=== PATIENT | male | born 1955 | race Caucasian/White ===

== ENCOUNTER 2020-03-09 09:55 | Outpatient (CLI) | payer BC, SELFPAY ==
--- NOTE | ~2020-03-09 | XR_ITS ---
XR lumbar spine 2-3V DATE: 03/09/2020 10:42 INDICATION: Back pain. Status post lumbar fusion. TECHNIQUE: Standing AP and lateral views COMPARISON: 03/25/2019 standing AP and lateral views FINDINGS: There are 6 functional lumbar vertebrae. There is mild lumbar scoliosis. Normal alignment at the lumbar spine. Again noted is posterior and interbody spinal fusion at the lumbosacral and 2 cephalad levels. No hardware failure or displacement is identified. Moderately severe degenerative disc disease is again noted at an upper lumbar interspaces level. Bila teral bipolar hip replacements. IMPRESSION: No significant change since 03/25/2019 Reviewed, dictated and finalized at location A.
== END 2020-03-09 09:56 | disposition home or self-care (01) ==
LOC: ANHIMG 10:05
DX: Z98.1 Arthrodesis status (principal)
CPT/HCPCS: 72100

== ENCOUNTER → 2020-06-21 09:29 | Outpatient (CLI) | payer BC, SELFPAY ==
--- NOTE | ~2020-06-21 | MR_ITS ---
EXAMINATION: MR lumbar spine wo/w con DATE: 06/21/2020 10:51 INDICATION: Lumbar radiculopathy TECHNIQUE: Magnetic resonance imaging (MRI) of the lumbar spine was performed without and with 20 mL Multihance intravenous contrast. Sequences included sagittal T2-weighted FSE, sagittal T2-weighted FS FSE, and sagittal and axial T1-weighted FSE. Postcontrast sequences included axial T2-weighted FSE, sagittal T1-weighted FSE, and axial and sagittal T1-weighted FS FSE. COMPARISON: 12/16/2018 FINDINGS: Straightening of the normal lumbar lordosis. Interval extension of the prior anterior and posterior s keke fusion previously seen at L5-S1 and now extending from L3 through S1. Metallic magnetic field f ield artifact is associated with interbody fusion devices as well as bilateral vertical rakel and pedic le screw fixation at each level. Minimal likely physiologic anterior wedging at T12. Severe disc heig ht loss with degenerative endplate changes at L1-L2. Disc desiccation without significant disc height loss at L2-L3. Interval increase in size of a previously 1.1 x 1.4 x 0.8 cm enhancing lesion in the right side of the L2 vertebral body which is isointense to skeletal muscle on T1-weighted images and which is increased in size to 1.6 x 1.6 x 1.1 cm. Given the lack of additional suspicious bone lesion s in the minimal slip box changer 18 months this would be most consistent with an atypical hemangioma. Mil d enhancement/with a small Schmorl's node along the superior endplate of L2. The conus medullaris ter minates at L1-L2. There is normal signal in the caudal spinal cord. Abdominal lipomatosis above the l evel of the postoperative changes where it has decreased with associated hemilaminotomies which be fu rther discussed below. Postoperative scarring in the soft tissues superficial to the mid to lower lum bar spine. Paravertebral soft tissues are otherwise unremarkable. The following disc levels are speci fically discussed: T12-L1: Disc is minimally bulging. There is mild right facet joint osteoarthritis. There is no neural foraminal stenosis. There is no central canal stenosis. L1-L2: Disc is bulging and has an annular fissure There is moderate right and mild left facet joint o steoarthritis. There is mild bilateral neural foraminal stenosis. There is moderate central canal nuria nosis. L2-L3: Increasing disc bulge with annular fissure. There is moderate right and mild to moderate left facet joint osteoarthritis. There is moderate left and mild to moderate right neural foraminal stenos is. There is severe central canal stenosis. L3-L4: Changes of anterior and posterior fusion. Bilateral hemilaminotomies with posterior decompress ion. There is no central canal stenosis. L4-L5: Changes of anterior and posterior fusion. Bilateral hemilaminotomies with posterior decompress ion. There is mild bilateral neural foraminal stenosis. There is no central canal stenosis. L5-S1: Stable appearance of change of anterior and posterior spinal fusion. There is no facet joint o steoarthritis. There is no neural foraminal stenosis. There is no central canal stenosis. IMPRESSION: 1. Severe lumbar spondylosis with interval extension of a prior combined instrumented anterior and po sterior spinal fusion at L5-S1, now extending cephalad to L3. Reviewed, dictated and finalized at location A. IMPRESSION: 1. Severe lumbar spondylosis with interval extension of a prior combined instru mented anterior and posterior spinal fusion at L5-S1, now extending cephalad to L3.
[2020-06-21 09:59] LABS: Estimated Glomerular Filt Rate 56
== END ==
PROVIDERS: Visit Provider Anesthesiology
DX: M47.26 Other spondylosis with radiculopathy, lumbar region (principal)
CPT/HCPCS: 36415; 72158; A9577

== ENCOUNTER → 2021-02-21 12:52 | Outpatient (CLI) | payer BC, SELFPAY ==
--- NOTE | ~2021-02-21 | MR_ITS ---
EXAMINATION: MR lumbar spine wo con DATE: 02/21/2021 14:01 INDICATION: Low back pain. Lumbar radiculopathy. TECHNIQUE: Magnetic resonance imaging (MRI) of the lumbar spine was performed without intravenous con trast. Sequences included sagittal T2-weighted FSE, sagittal STIR FSE, sagittal T1-weighted FSE, and axial T2-weighted FSE. COMPARISON: Lumbar spine MRI 06/21/2020 FINDINGS: Bone alignment is normal. There is mild chronic anterior wedging of T11-L1 vertebral bodies . There is moderately decreased disc height at L1-L2 and mildly decreased disc height at L2-L3. There are changes of anterior and posterior fusion procedures from L3 to S1 with discectomies, interbody d evices, and pedicle screws. There is epidural lipomatosis in upper lumbar spine. The distal spinal co rd signal intensity is normal. The conus medullaris is at L1-L2. The following disc levels are specif ically discussed: L1-L2: The disc is bulging and has an annular fissure. There is moderate bilateral facet joint osteoa rthritis. There is mild lateral neural foraminal stenosis. There is mild central canal stenosis. L2-L3: The disc is bulging and has an annular fissure. There is severe bilateral facet joint osteoart hritis. There is moderate bilateral neural foraminal stenosis. There is moderate central canal stenos is. L3-L4: There is moderate right and mild left facet joint hypertrophy. There is moderate right and mil d left neural foraminal stenosis. There is no central canal stenosis. L4-L5: There is moderate left facet joint hypertrophy. There is mild bilateral neural foraminal steno sis. There is no central canal stenosis. L5-S1: There is mild right facet joint hypertrophy. There is mild right neural foraminal stenosis. Th ere is no central canal stenosis. IMPRESSION: 1. Moderate lumbar spondylosis, stable from 06/21/2020. 2. Anterior and posterior fusion procedures from L3 to S1. Reviewed, dictated and finalized at location A.
[2021-02-21 13:30] LABS: Estimated Glomerular Filt Rate 36
== END ==
PROVIDERS: Visit Provider Anesthesiology
DX: M47.26 Other spondylosis with radiculopathy, lumbar region (principal); Z98.1 Arthrodesis status
CPT/HCPCS: 72148

== ENCOUNTER 2021-05-17 00:51 | Day surgery (SDC) | payer MEDICARE, BC, SELFPAY ==
[2021-05-11 09:28] VITALS: BMI 34.5
--- NOTE | 2021-05-17 07:11 | WPDHPUPDATE1 ---
History and Physical Update Update Date/Time: 05/17/21 07:11 History and Physical has been reviewed, including an updated exam of the patient. There are NO changes in the patient's condition. Risks, benefits, and alternatives have been discussed and questions answered. Patient agrees to proceed with procedure.
[2021-05-17 09:49] VITALS: BP 173/79; PULSE 59; RESP 16; TEMP 36.2; O2SAT 100
[2021-05-17] MEDS: LACTATED RINGERS 1,000 ML 30 ML IV CONT (10:07)
--- NOTE | 2021-05-17 10:31 | WPDANESEPPF ---
Anes - Initial Pre Proc Eval Procedure: Operation Date: 05/17/21 11:45 Proposed Procedures p Excision Subcutaneous Mass Right Sternocleidomastoid - Ferny Cruz MD Date/Time: 05/17/21 10:31 Surgeon: Ferny Cruz MD Pre Op Diagnosis: right mass subcutaneous sternocleidomastoid Patient Data Age: 66 Gender: M Height: 1.73 m Weight: 102.99 kg Last Vital Signs Temp 36.2 C L 05/17/21 09:49 Pulse 59 L 05/17/21 09:49 Resp 16 05/17/21 09:49 BP 173/79 H 05/17/21 09:49 Pulse Ox 100 05/17/21 09:49 Allergies Allergy/AdvReac Type Severity Reaction Status Date / Time duloxetine [Cymbalta] Allergy Mild URINARY Verified 05/17/21 10:12 RETENTION Home Medications Medication Instructions Recorded Confirmed Type omeprazole 40 mg capsule,delayed 40 mg PO DAILY #90 cap 11/08/19 05/17/21 Rx release celecoxib 200 mg PO BID 05/11/21 05/17/21 History hydrocodone-acetaminophen 1 tablet PO Q8H PRN 05/11/21 05/17/21 History lisinopril-hydrochlorothiazide 1 tablet PO DAILY 05/11/21 05/17/21 History pregabalin 150 mg PO BID 05/11/21 05/17/21 History tizanidine 2 mg PO PRN PRN 05/11/21 05/17/21 History Patient hx anesthesia problems: none Family hx anesthesia problems: none PMFSH Past Medical History Medical History (Updated 05/17/21 @ 10:32 by Rey Garcia MD) Chronic back pain HTN (hypertension) Obesity Surgical History Surgical History (Updated 05/17/21 @ 10:32 by Rey Garcia MD) S/P lumbar spinal fusion Family History Family History Father Diabetes mellitus Father Family history of type 2 diabetes mellitus Social History Social History Smoking packs per day: 1 Smoking cigarettes per day: 20.0 Years smoked: 25 Smoking pack-years: 25.00 Smoking status: Former smoker Tobacco type: cigarettes Smoking end date: 11/10/10 Alcohol intake: current Drinks per week: 6 Living arrangements: with family Spiritual care concerns: No Anes - Eval Final PreProcedure Day of Procedure 05/17/21 10:31 Patient weight: obese Heart: regular rate and rhythm Lungs: clear to auscultation Airway: Mallampati scale class III Neurological: alert and oriented Last oral intake: >/= 8 hours ASA classification: III Emergent: no Anesthetic plan: proceed Anesthesia type and monitoring: general GIVS and standard monitoring Informed Consent: The patient's anesthetic plan and its attendant risks and benefits were discussed with the patient/family/POA. Questions were solicited and answers provided to the satisfaction of the patient/family/POA.
[2021-05-17] MEDS: LIDO 1%/EPINEPHRINE 1:100,000 20 ML VIAL 10 ML INFILTRATE (12:08)
[2021-05-17 13:07] VITALS: BP 101/55; PULSE 53; RESP 20; TEMP 36.6; O2SAT 98
[2021-05-17 13:22] VITALS: BP 106/53; PULSE 46; RESP 10; O2SAT 100
[2021-05-17 13:35] VITALS: BP 105/55; PULSE 48; RESP 12; O2SAT 99
--- NOTE | 2021-05-17 13:41 | PM.OP ---
Procedure Note - Brief Procedure Note - Brief Date of procedure: 05/17/21 Pre-op diagnosis: right mass subcutaneous sternocleidomastoid Post-op diagnosis: same Procedure performed: Excision of subcutaneous mass right sternocleidomastoid. Anesthesia: GLMA Surgeon: Ferny Cruz MD Lead Supply Worker: Lilliam Estimated blood loss (mL): 2 Drains: No Packing: No Pathology: yes Complications: No immediate complications Condition: stable Disposition: PACU Findings: Frozen section not diagnostic. Dx deferred to permenants.
[2021-05-17 13:44] VITALS: BP 142/72; PULSE 50; RESP 12
--- NOTE | 2021-05-17 13:46 | W.PM.PROC2 ---
Procedure Note - Detailed Date of Procedure 05/17/21 Pre-op Diagnosis right mass subcutaneous sternocleidomastoid Post-op Diagnosis same Procedure Performed Excision of subcutaneous mass of the right sternocleidomastoid with nondiagnostic FS. Surgeon Ferny Cruz MD Restaurant Maintenance Technician Lilliam Anesthesia general Indications Intramuscular mass. Findings Discrete, yellowish mass. FS not diagnostic. Description of Procedure The site over the right side of the neck was examined and marked in the holding area. The patient was taken to the operating room and placed supine on the operating table. A time-out was held and confirmed. He was given general anesthesia with an LMA. The right neck and chest were prepped and draped in usual fashion. The site was marked and anesthetized with 1% lidocaine with epinephrine. An elliptical incision was made over were. The the site of a punctum at the most prominent point of this mass. We immediately encountered yellowish fatty material that seemed to be of unusual consistency for lipoma. Since this mass lay location near the parotid I was concerned for that tissue. Specimen was sent down to pathology for frozen section. The pathologist could not make a firm diagnosis but he believed that no mitoses were evident. He also did not see evidence of parotid tissue . He deferred his diagnosis until permanent specimens were prepared. Chetna Chowdhury to further expose the mass which indeed was subcutaneous in the sternocleidomastoid muscle. The distal and was quickly identified and was brought out from its intramuscular bed. Proximally similar tissue was identified. There is no dominant neurovascular pedicle to this mass and no other ductal structures. . the specimen sent for permanent section. The wound was closed with intradermal 4-0 Vicryl sutures and running intradermal 4-0 Vicryl. The bandage was applied. He is discharged from the operating room stable condition Estimated Blood Loss 2 Drains No Packing No Pathology yes Complications No immediate complications Condition stable Disposition PACU
[2021-05-17] MEDS: oxyCODONE HCL (*CRX) 5 MG TAB IR PO (14:01)
[2021-05-17 14:14] VITALS: BP 141/74; PULSE 47; RESP 12
== END 2021-05-17 14:23 | disposition home or self-care (01) ==
PROVIDERS: PCP Family Medicine; Visit Provider Plastic Surgery
PROC: (CPT 21554; principal; 2021-05-17 11:45)
DX: D17.0 Benign lipomatous neoplasm of skin and subcutaneous tissue of head, face and neck (principal); I10 Essential (primary) hypertension; M54.9 Dorsalgia, unspecified; G89.29 Other chronic pain; E66.9 Obesity, unspecified; Z68.34 Body mass index [BMI] 34.0-34.9, adult; Z79.891 Long term (current) use of opiate analgesic; Z98.1 Arthrodesis status; Z87.891 Personal history of nicotine dependence
CPT/HCPCS: 21554; 88304; 88305; 88331; A9270; J2250; J2704; J3010; J7120

== ENCOUNTER → 2022-01-11 14:45 | Outpatient (CLI) | payer MEDICARE, BC, SELFPAY ==
--- NOTE | ~2022-01-11 | MR_ITS ---
EXAMINATION: MR lumbar spine wo/w con DATE: 01/11/2022 15:48 INDICATION: Lumbar radiculopathy. Chronic low back pain. TECHNIQUE: Magnetic resonance imaging (MRI) of the lumbar spine was performed without and with 20 mL MultiHance intravenous contrast. Sequences included sagittal T2-weighted FSE, sagittal STIR FSE, and sagittal and axial T1-weighted FSE. Postcontrast sequences included axial T2-weighted FSE and axial a nd sagittal T1-weighted FS FSE. COMPARISON: Lumbar spine MRI 02/21/2021, 06/21/20 FINDINGS: There is hypolordosis of lumbar spine. There is mild chronic anterior wedging of T12 and L1 vertebral bodies. There is a 17 mm enhancing mass in L2 vertebral body with decreased T1-weighted si gnal intensity on precontrast images. There are changes of anterior and posterior fusion procedures f rom L3 to S1 with interbody devices and pedicle screws. There is severely decreased disc height at L1 -L2 and moderately decreased disc height at L2-L3 with endplate remodeling. The distal spinal cord si gnal intensity is normal. The conus medullaris is at L1-L2. The following disc levels are specificall y discussed: L1-L2: The disc is bulging and has an annular fissure. There is severe right and moderate left facet joint osteoarthritis. There is mild right and moderate left neural foraminal stenosis. There is moder ate central canal stenosis. L2-L3: The disc is bulging and has an annular fissure. There is severe bilateral facet joint osteoart hritis. There is moderate bilateral neural foraminal stenosis. There is moderate central canal stenos is. L3-L4: There is no facet joint hypertrophy. There is mild bilateral neural foraminal stenosis with po sterior decompression. There is no central canal stenosis with posterior decompression. L4-L5: There is mild right and moderate left facet joint hypertrophy. There is mild bilateral neural foraminal stenosis. There is no central canal stenosis with posterior decompression. L5-S1: There is mild right facet joint hypertrophy. There is moderate right neural foraminal stenosis . There is no central canal stenosis. IMPRESSION: 1. Severe lumbar spondylosis, stable from 02/21/2021. 2. 17 mm enhancing mass in L2 vertebral body, increased from 14 mm on 06/21/2020. 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 Reviewed, dictated and finalized at location A. BALL MARKER IMPRESSION: 1. Severe lumbar spondylosis, stable from 02/21/2021. 2. 17 mm enhancing mass in L2 vertebral body, increased from 14 mm on 06/21/2020 . In the absence of known malignancy, this finding is likely an atypical kyle ioma.
[2022-01-11 15:09] LABS: Estimated Glomerular Filt Rate 55
== END ==
PROVIDERS: Visit Provider Anesthesiology
DX: M47.26 Other spondylosis with radiculopathy, lumbar region (principal)
CPT/HCPCS: 72158; A9577

== ENCOUNTER 2022-03-11 08:12 | Outpatient (CLI) | payer MEDICARE, BC, SELFPAY ==
--- NOTE | ~2022-03-11 | NM_ITS ---
EXAMINATION: NM bone scan whole body DATE: 03/11/2022 13:26 INDICATION: L2 hemangioma. Back pain. TECHNIQUE: 22.4 mCi Tc-99m HDP was administered intravenously. Delayed whole-body scintigrams were o btained. COMPARISON: CT lumbar spine 03/11/2022, MRI 10/27/2017 FINDINGS: There is joint-centered increased activity in the acromioclavicular joints, hands, left kne e, and feet, likely osteoarthritis. There is increased activity in lumbar spine, worst at L2-L3, delvis elating with degenerative disc disease by CT. IMPRESSION: 1. No increased activity in the L2 lytic lesion described by CT, likely a hemangioma. Reviewed, dictated and finalized at location B. IMPRESSION: 1. No increased activity in the L2 lytic lesion described by CT, likely a heman gioma.
--- NOTE | ~2022-03-11 | CT_ITS ---
EXAMINATION: CT lumbar spine wo con DATE: 03/11/2022 08:58 INDICATION: L2 hemangioma. Low back pain. TECHNIQUE: Computed tomography (CT) of the lumbar spine was performed without intravenous contrast. A utomated exposure control and iterative reconstruction technique were employed. The dose-length produ ct was 801.40 mGy-cm. COMPARISON: Lumbar spine MRI 01/11/2022, 10/27/17 FINDINGS: There is a 6 mm stone in right kidney. There is 6 degrees dextrocurvature of thoracolumbar spine. There is 3 mm retrolisthesis of L1 on L2. There is mild chronic anterior wedging of T12 and L1 vertebral bodies, likely physiologic. There are changes of anterior fusion procedure from L3 to S1 w ith interbody devices. There are changes of posterior fusion procedure from L3 to S1 with pedicle scr ews. There is severely decreased disc height at L1-L2 and L2-L3 with endplate remodeling. There is a 17 mm nonaggressive lytic lesion in L2 vertebral body. The following disc levels are specifically dis cussed: L1-L2: The disc is bulging. There is moderate bilateral facet joint osteoarthritis. There is mild rig ht and moderate left neural foraminal stenosis. There is mild central canal stenosis. L2-L3: The disc is bulging. There is severe bilateral facet joint osteoarthritis. There is moderate b ilateral neural foraminal stenosis. There is moderate central canal stenosis. L3-L4: There is mild bilateral facet joint hypertrophy. There is mild right neural foraminal stenosis . There is no central canal stenosis. L4-L5: There is mild bilateral facet joint hypertrophy. There is mild right and moderate left neural foraminal stenosis. There is no central canal stenosis. L5-S1: There is mild right facet joint hypertrophy. There is mild right neural foraminal stenosis. Th ere is no central canal stenosis. IMPRESSION: 1. Chronic nonaggressive lytic lesion in L2 vertebral body, likely a hemangioma. 2. Severe lumbar spondylosis. 3. Anterior fusion and posterior fusion procedures from L3 to S1. Reviewed, dictated and finalized at location B. IMPRESSION: 1. Chronic nonaggressive lytic lesion in L2 vertebral body, likely a hemangioma . 2. Severe lumbar spondylosis. 3. Anterior fusion and posterior fusion procedures from L3 to S1.
== END 2022-03-11 08:13 | disposition home or self-care (01) ==
PROVIDERS: PCP Family Medicine; Visit Provider Anesthesiology
DX: D18.09 Hemangioma of other sites (principal); M47.896 Other spondylosis, lumbar region; Z98.1 Arthrodesis status
CPT/HCPCS: 72131; 78306; A9561

== ENCOUNTER 2024-08-24 12:43 | Outpatient (CLI) | payer MEDICARE, BC, SELFPAY ==
--- NOTE | ~2024-08-24 | XR_ITS ---
3 VIEWS LUMBAR SPINE Ordering provider: Marti Friedman, [employer] History: . LUMBAR RADICULOPATHY INJ PAIN . Comparison: March 09, 2020 FINDINGS: VERTEBRAL BODIES:Postoperative changes at the level of L3, L4, L5 and S1. Subluxation seen at the lev el of the sacrococcygeal area. No visible fracture or subluxation. DISK SPACES: Narrowing of the disc L1-L2 and L2-L3. Disc spacers at the level of L3-L4, L4-L5 and L5- S1. SOFT TISSUES: Normal. IMPRESSION: No acute osseous abnormality lumbar spine. Multilevel degenerative disc disease. Reviewed, dictated and finalized at location A.
--- NOTE | ~2024-08-24 | MR_ITS ---
EXAMINATION: MR lumbar spine wo con DATE: 08/24/2024 14:03 INDICATION: Lumbar radiculopathy TECHNIQUE: Magnetic resonance imaging (MRI) of the lumbar spine was performed without intravenous con trast. Sequences included sagittal T2-weighted FSE, sagittal T2-weighted FS FSE, sagittal T1-weighted FSE, and axial T2-weighted FSE. COMPARISON: None FINDINGS: Straightening of the normal lumbar lordosis. 3 mm retrolisthesis L1 on L2. Minimal upper lumbar dextr ocurvature and minimal lower lumbar levocurvature. There is instrumented L3-S1 anterior and posterior spinal fusion with metallic magnetic field artifact associated with interbody bone graft cages and b ilateral vertical rakel and pedicle screw fixation at each level. There is epidural lipomatosis with po sterior decompression at L3-L4, L4-5 and L5-S1. There is chronic mild likely physiologic anterior wed ging at T12 and L1. Severe disc height loss with fibrovascular degenerative endplate changes at L1-L2 and L2-L3. T2 hyperintense lesion with central thickened low signal intensity vertical trabecula whi ch appears unchanged since CT from 2 years prior most consistent with an atypical hemangioma. Marrow signal is otherwise unremarkable. There is additional mild disc height loss and minimal desiccation a t T10-T11 and T12-L1. The conus medullaris terminates at L1-L2. The tip of the conus is difficult to distinguish from the surrounding centrally clustered nerve roots due to the severe central canal sten osis at L1-L2 and L2-L3 which be further discussed below. There is a taut appearance to the cauda equ halye cephalad to to the severe stenosis at L2-3 with a lax appearance of the cauda equina in the more caudal central canal. There is normal signal in the caudal spinal cord. The following disc levels are specifically discussed: T12-L1: Disc is mildly bulging. There is mild bilateral facet joint osteoarthritis. There is mild akbar ateral neural foraminal stenosis. There is mild central canal stenosis. L1-L2: Disc is bulging. There is hypertrophy of the ligamentum flavum as well as increased epidural f at. There is severe bilateral facet joint osteoarthritis. There is moderate bilateral, left greater than right, neural foraminal stenosis. There is severe central canal stenosis. L2-L3: Disc is bulging. There is hypertrophy of the ligamentum flavum. There is severe bilateral face t joint osteoarthritis. There is moderate right and moderate to severe left neural foraminal stenosis . There is severe central canal stenosis. L3-L4: Disc space is fused. Posterior spinal fusion. There is mild bilateral neural foraminal stenosi s. Posterior decompression with left hemilaminotomy. No central canal stenosis. L4-L5: Disc space is fused. Posterior spinal fusion. There is mild bilateral neural foraminal stenosi s. Posterior decompression with right hemilaminotomy. No central canal stenosis. L5-S1: Disc space is fused. Posterior spinal fusion. There is mild to moderate right and no left neur al foraminal stenosis. Posterior decompression with left hemilaminotomy and resection of the left S1 superior articular process. No central canal stenosis. IMPRESSION: 1. Severe lumbar spondylosis with combined instrumented L3-S1 anterior and posterior spinal fusion an d with posterior decompression at L3-L4 through L5-S1. Residual severe central canal stenosis at L1-L 2 and L2-L3. Reviewed, dictated and finalized at location A. IMPRESSION: 1. Severe lumbar spondylosis with combined instrumented L3-S1 anterior and post erior spinal fusion and with posterior decompression at L3-L4 through L5-S1. Re sidual severe central canal stenosis at L1-L2 and L2-L3.
== END 2024-08-24 12:44 | disposition home or self-care (01) ==
PROVIDERS: Visit Provider Nurse Practitioner Adult Health
DX: M47.26 Other spondylosis with radiculopathy, lumbar region (principal)
CPT/HCPCS: 72110; 72148

== ENCOUNTER 2025-01-04 08:46 | Outpatient (RCR) | payer MEDICARE, BC, SELFPAY ==
--- NOTE | 2025-01-04 09:54 | OPREHPOC ---
Outpatient Therapy Plan of Care This is a Multidisciplinary Plan of Care that may contain components documented by all disciplines (PT, OT, and ST.) PT Problem 1 PT Problem #1 Knowledge Deficit PT Goal 1 Goal / Goal Update The patient will be independent in a home exercise program. Target Visit 4 PT Problem 2 PT Problem #2 Pain PT Goal 1 Goal / Goal Update The patient will report no greater than 3/10 neck pain with lifting household items. Target Visit 10 PT Problem 3 PT Problem #3 Impaired Functional Mobility PT Goal 1 Goal / Goal Update The patient will demonstrate 20% or less self perceived disability per the Neck Index questionnaire. The patient will be able to read and sleep without increased neck pain. Target Visit 10 PT Problem 4 PT Problem #4 Impaired Range of Motion PT Goal 1 Goal / Goal Update The patient will demonstrate 70 degrees of bilateral cervical rotation AROM and 20 degrees of bilateral cervical lateral flexion AROM to improve ROM for ADLs like driving. Target Visit 10
--- NOTE | 2025-01-04 09:54 | PTOPEVAL1 ---
Assessment and note entered by Serenity Taveras, PT Evaluation Information Assessment Status Evaluation ICD-10 Condition Codes (PT) Cervicalgia M54.2 Onset 12/29/24 Subjective Information Rey Cisneros reports he has been having pain in his neck that travels into his shoulders and down into the hands. He notes it is worse on right than the left. He notes his right hand was swollen on 01/03/25 and he could not write. 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 He had x-rays taken at the pain management clinic in [place] and it showed degenerative disc disease and bilateral neural foraminal narrowing. He has a TENS unit that he uses that is helpful sometimes and other times it is not. 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 He has not had any injections in his neck recently. He notes the neck pain became more prominent when he had to change a tire on his car about 2 weeks. He notes he has worse pain with lifting, looking down for long periods, and working with his arm above his head. Reported Pain Level Pain Score 3: Self Report Assessment PT Clinical Summary Rey Cisneros presents with cervical pain with radiation into the right > left UE. He notes difficulty with lifting heavier items, looking down for a long period, and working with his arms overhead. Recent x-rays revealed degenerative disc disease and neural foraminal narrowing. He demonstrates decreased and painful cervical AROM, decreased posture, and tenderness in the upper trapezius. He had a relief of radiating pain with manual cervical traction so mechanical traction was trialed today. He will benefit from skilled PT to address the above listed physical and functional limitations. Plan of Care Interventions Electrical Stimulation,Hot Pack/Cold Pack,Manual Therapy,Mechanical Traction,Neuro Re-education, Patient/Caregiver Education,Therapeutic Activities ,Therapeutic Exercise PT Services Indicated Yes Treatment Frequency and 2 times a week for 10 visits Duration These treatments will address the objective and functional deficits as defined above. The patient will be advanced safely and appropriately in order for the patient to progress towards his/her prior level of function. Additional exercises will be introduced and as well as a comprehensive home exercise program upon discharge, if needed, ?to ensure carryover of functional gains achieved in the clinic. This treatment plan has been reviewed and agreement upon by the patient.
--- NOTE | 2025-01-27 11:03 | PTOPDC ---
Assessment and note entered by Sarah Coley, PT Evaluation Information Assessment Status Discharge ICD-10 Condition Codes (PT) Cervicalgia M54.2 Onset 12/29/24 Subjective Information Rey reports his neck pain is much improved since beginning therapy. He no longer has any numbness, tingling, or swelling in his hands and he's sleeping much better. He has been independent in his home exercise regimen and has also been using hot packs and a home TENS machine for pain relief. He feels like his neck pain is manageable now at this point and is ready to discharge to prepare for his upcoming cataract surgery. Reported Pain Level Pain Score 3: Self Report Assessment PT Clinical Summary Mr. Cisneros has attended 7 total skilled physical therapy visits for cervicalgia. Since beginning therapy he reports he's been sleeping much better and no longer has numbness, tingling, or swelling in his hands. He has made excellent improvements in his cervical ROM and has met or partially met all therapeutic goals set for him, therefore skilled PT intervention is no longer indicated. Plan of Care PT Services Indicated No
--- NOTE | 2025-01-27 11:03 | OPREHPOC ---
Outpatient Therapy Plan of Care This is a Multidisciplinary Plan of Care that may contain components documented by all disciplines (PT, OT, and ST.) PT Problem 1 PT Problem #1 Knowledge Deficit PT Goal 1 Goal / Goal Update The patient will be independent in a home exercise program. Target Visit 4 Progress Met PT Problem 2 PT Problem #2 Pain PT Goal 1 Goal / Goal Update The patient will report no greater than 3/10 neck pain with lifting household items. Target Visit 10 Progress Met PT Problem 3 PT Problem #3 Impaired Functional Mobility PT Goal 1 Goal / Goal Update The patient will demonstrate 20% or less self perceived disability per the Neck Index questionnaire. The patient will be able to read and sleep without increased neck pain. Target Visit 10 Progress Met PT Problem 4 PT Problem #4 Impaired Range of Motion PT Goal 1 Goal / Goal Update The patient will demonstrate 70 degrees of bilateral cervical rotation AROM and 20 degrees of bilateral cervical lateral flexion AROM to improve ROM for ADLs like driving. Target Visit 10 Progress Met
== END 2025-01-27 13:44 | disposition home or self-care (01) ==
LOC: CHSPT 08:46
PROVIDERS: Visit Provider Nurse Practitioner Adult Health
DX: M54.2 Cervicalgia (principal)
CPT/HCPCS: 97012; 97014; 97110; 97140; 97161; G0283

== ENCOUNTER 2025-07-12 09:12 | Outpatient (RCR) | payer MEDICARE, BC, SELFPAY ==
--- NOTE | 2025-07-12 10:24 | PTOPEVAL1 ---
Assessment and note entered by Lizabeth Campos DPT Evaluation Information Assessment Status Evaluation Diagnosis low back pain Other ICD-10 Condition Codes ( M48.062 PT) Onset 06/24/25 Subjective Information Patient reports that he underwent MILD on 06/24/25. He reports he has started to feel better but is still stiff when he gets up. he reports pain is in the low back and down the R LE to mid calf. He reports prior to procedure he has having some pain down the R LE but now it is pretty constant. He reports he does not have any restrictions but the MD told him to work back into things. He reports pain and difficulty getting out of bed, standing for prolonged periods of time, lifting and navigating stairs. he reports to MD in 1 month. He reports he is fused from L3-S1 and has R hip replacement. Reported Pain Level Pain Score 5: Self Report Assessment PT Clinical Summary Mr. Cisneros is a 70 year old male who presents to PT with low back pain following MILD procedure. He demonstrates decreased B LE flexibility, decreased B hip strength R>L and impaired posture limiting his ability to get out of bed, stand for house hold tasks and navigate stairs. He would benefit from skilled PT to address impairments and return to PLOF. Plan of Care Interventions Electrical Stimulation,Gait Training,Hot Pack/Cold Pack PT Services Indicated Yes Treatment Frequency and 2x weekly for 10 visits Duration These treatments will address the objective and functional deficits as defined above. The patient will be advanced safely and appropriately in order for the patient to progress towards his/her prior level of function. Additional exercises will be introduced and as well as a comprehensive home exercise program upon discharge, if needed, ?to ensure carryover of functional gains achieved in the clinic. This treatment plan has been reviewed and agreement upon by the patient.
--- NOTE | 2025-08-08 09:07 | PCPTNOTE ---
cancelled session. Reports he was up all night sick. Reports he will be here later this week.
--- NOTE | 2025-08-11 11:14 | OPREHPOC ---
Outpatient Therapy Plan of Care This is a Multidisciplinary Plan of Care that may contain components documented by all disciplines (PT, OT, and ST.) PT Problem 1 PT Problem #1 Knowledge Deficit PT Goal 1 Goal / Goal Update patient independent in a home exercise program. Target Visit 5 Progress Met PT Problem 2 PT Problem #2 Pain PT Goal 1 Goal / Goal Update 1. Patient reports highest pain at 2/10 -not met 2. Patient reports ability to get out of bed with no increase in low back pain -not met Target Visit 10 Progress Not Met PT Problem 3 PT Problem #3 Impaired Functional Mobility PT Goal 1 Goal / Goal Update 1. Patient to report ability to stand for >30 minutes for house hold chores without increase in low back pain -met 2. Patient to demonstrate B HS length to 20 deg to improve posture for standing activities -met 3. Patient to improve Back Index by 20% -met 4. Patient to report ability to navigate 1 flight of stairs without increased in low back pain -met Target Visit 10 Progress Met
--- NOTE | 2025-08-11 11:14 | PTOPDC ---
Assessment and note entered by Serenity Taveras, PT Evaluation Information Assessment Status Discharge Diagnosis low back pain Other ICD-10 Condition Codes ( M48.062 PT) Onset 06/24/25 Subjective Information Rey Cisneros reports he is feeling much better since starting PT. He still has stiffness in his back and right groin upon waking but he notes it goes away after stretching. He has been able to return to previous activities without limitations. Reported Pain Level Pain Score 4,0: Self Report Assessment PT Clinical Summary Mr. Cisneros has completed 8 skilled PT visits for low back pain following MILD procedure. He reports having significantly less pain and being able to return to previous activities without limitations. He demonstrates improved quad and hamstring flexibility, improved core and hip strength, and improved self perceived disability per the Back Index questionnaire. He has met 70% of his goals and has asked to be discharged from formal PT. Plan of Care PT Services Indicated No
== END 2025-08-11 13:43 | disposition home or self-care (01) ==
LOC: CHSPT 09:12
PROVIDERS: Visit Provider Anesthesiology Pain Medicine
DX: M48.062 Spinal stenosis, lumbar region with neurogenic claudication (principal)
CPT/HCPCS: 97014; 97110; 97140; 97161; G0283